=== PATIENT | female | born 1960 | race Two or more races ===

== ENCOUNTER 2019-06-29 12:33 | Emergency (ER) | payer MEDICAID ==
[~2019-06-29] VITALS: Ht 167.6 cm; Wt 65.0 kg
[2019-06-29] MEDS ORDERED: MAGNESIUM/ALUMINUM HYDROXIDE/SIMETHICONE 30ML UDC PO ONE (13:15)
[2019-06-29] MEDS ORDERED: FAMOTIDINE 20MG TABLET PO ONE (13:15)
[2019-06-29] MEDS ORDERED: ONDANSETRON 4MG ODT PO ONE (13:15)
[2019-06-29] MEDS ORDERED: ACETAMINOPHEN 325MG TABLET PO ONE (13:15)
[2019-06-29 14:31] LABS: BASOPHILS % 0.6 % (0.0-2.0); EOSINOPHILS % 0.1 % (0.0-5.0); HEMOGLOBIN. 13.2 g/dL (12.0-16.0); MEAN CORPUSCULAR HEMOGLOBIN 30.1 pg (28.0-32.0); MEAN CORPUSCULAR VOLUME 84.3 fL (81.0-99.0); MEAN PLATELET VOLUME 7.8 fl (7.4-10.4); MONOCYTES % 4.6 % (2.0-8.0); NEUTROPHILS % 77.7 % (40.0-76.0); PLATELET 274 x1000/uL (130-400); RED BLOOD CELL COUNT 4.39 mill/uL (4.2-5.4); RED CELL DISTRIBUTION WIDTH 12.9 % (11.6-14.6)
[2019-06-29 14:37] LABS: CHLORIDE 96 mEq/L (98-107)
[2019-06-29] MEDS ORDERED: SODIUM CHLORIDE 0.9% 1,000 ML IV ONE (15:00)
[2019-06-29] MEDS ORDERED: POTASSIUM CHLORIDE 20MEQ TABLET SR PO ONE ×2 (15:00→17:00)
[2019-06-29] MEDS ORDERED: KCL 20MEQ/100ML PREMIX 100 ML IV ONE (15:00)
[2019-06-29] MEDS ORDERED: KCL 20MEQ/100ML PREMIX 100 ML IV NR (16:00)
[2019-06-29 18:30] VITALS: BP 103/61
== END 2019-06-29 18:33 | disposition home or self-care (01) ==
LOC: ER 12:33
DX: E86.0 Dehydration (principal); R42 Dizziness and giddiness; E87.6 Hypokalemia; E78.00 Pure hypercholesterolemia, unspecified; I10 Essential (primary) hypertension
CPT/HCPCS: 36415; 71045; 80053; 83690; 84484; 85025; 93005; 96361; 96365; 99284; J3480; Q0162